=== PATIENT | female | born 1950 | race Caucasian/White ===

== ENCOUNTER 2016-09-10 06:52 | Inpatient (IN) | payer OTHER ==
[2016-09-16] MEDS ORDERED: PRINIVIL20 MG PO (08:00)
[2016-09-16] MEDS ORDERED: TIKOSYN250 MCG PO (08:01)
[2016-09-16] MEDS ORDERED: ARIMIDEX1 MG PO (08:02)
[2016-09-16] MEDS ORDERED: REQUIP2 MG PO (08:02)
[2016-09-16] MEDS ORDERED: XARELTO20 MG PO (08:02)
[2016-09-16] MEDS ORDERED: EFFEXOR37.5 MG PO (08:03)
[2016-09-16] MEDS ORDERED: PHENERGAN25 M1 PO (08:03)
[2016-09-16] MEDS ORDERED: FOSAMAX70 MG PO (08:04)
[2016-09-16] MEDS ORDERED: LOPRESSOR50 MG PO (08:05)
[2016-09-16] MEDS ORDERED: MYRBETRIQ50 MG PO (08:06)
[2016-09-16] MEDS ORDERED: NEURONTIN600 MG PO (08:06)
[2016-09-16] MEDS ORDERED: HYDROXYZINE HCL25 MG PO (08:07)
[2016-09-16] MEDS ORDERED: ACETAMINOPHEN325 MG PO (08:08)
[2016-09-16] MEDS ORDERED: NAPROSYN500 MG PO (08:08)
[2016-09-16] MEDS ORDERED: PERCOCET 10-321 EACH PO (08:10)
[2016-09-16] MEDS ORDERED: CALCIUM 600 +1 EAC7 PO (08:10)
== END 2016-09-14 10:10 | disposition home or self-care (01) | DRG 470 ==
LOC: SDC 06:52 → MED 15:00
PROVIDERS: ADMIT Internal Medicine
PROC: 0SRC0J9 Replacement of Right Knee Joint with Synthetic Substitute, Cemented, Open Approach (ICD-10-PCS; principal; 2016-09-10)
DX: M17.0 Bilateral primary osteoarthritis of knee (principal); I50.30 Unspecified diastolic (congestive) heart failure; I42.9 Cardiomyopathy, unspecified; I48.2 Chronic atrial fibrillation; Z79.01 Long term (current) use of anticoagulants; D72.829 Elevated white blood cell count, unspecified; G47.33 Obstructive sleep apnea (adult) (pediatric); F41.9 Anxiety disorder, unspecified; Z85.3 Personal history of malignant neoplasm of breast; I11.0 Hypertensive heart disease with heart failure; K21.9 Gastro-esophageal reflux disease without esophagitis; Z87.442 Personal history of urinary calculi; Z88.0 Allergy status to penicillin; Z88.8 Allergy status to other drugs, medicaments and biological substances; Z88.5 Allergy status to narcotic agent; Z91.040 Latex allergy status; Z79.899 Other long term (current) drug therapy; Z90.49 Acquired absence of other specified parts of digestive tract; Z90.710 Acquired absence of both cervix and uterus; Z82.49 Family history of ischemic heart disease and other diseases of the circulatory system; Z83.3 Family history of diabetes mellitus; Z84.89 Family history of other specified conditions; Z87.891 Personal history of nicotine dependence
CPT/HCPCS: 97162-GP; 97166; C1776; J0360; J1650; J1885; J2704; J2765